=== PATIENT | female | born 1975 | race Caucasian/White ===

== ENCOUNTER 2023-05-13 12:14 | Day surgery (SDC) | payer MEDICAID ==
[~2023-05-13] VITALS: Ht 152.4 cm; Wt 83.9 kg
[2023-05-13] MEDS ORDERED: diphenhydrAMINE 50 MG/ML VIAL ONE (12:34)
[2023-05-13] MEDS ORDERED: fentaNYL citrate 0.05 MG/ML VIAL ONE (12:35)
[2023-05-13] MEDS ORDERED: MIDAZOLAM 2 MG/2 ML VIAL ONE (12:35)
[2023-05-13] MEDS ORDERED: MIDAZOLAM 2 MG/2 ML VIAL IVP ONE (13:45)
[2023-05-13] MEDS ORDERED: fentaNYL citrate 0.05 MG/ML VIAL IVP ONE (13:45)
== END 2023-05-13 14:06 | disposition home or self-care (01) ==
LOC: MDS 12:14 → MMU 12:31 → MDS 14:06
PROVIDERS: ATTEND Internal Medicine Gastroenterology
DX: R10.13 Epigastric pain (principal); K21.9 Gastro-esophageal reflux disease without esophagitis; K29.50 Unspecified chronic gastritis without bleeding; B96.81 Helicobacter pylori [H. pylori] as the cause of diseases classified elsewhere; M19.90 Unspecified osteoarthritis, unspecified site; M77.9 Enthesopathy, unspecified; F17.210 Nicotine dependence, cigarettes, uncomplicated; Z79.899 Other long term (current) drug therapy
CPT/HCPCS: 43239; J2250; J3010; J1200

== ENCOUNTER 2023-07-15 07:14 | Day surgery (SDC) | payer OTHER ==
[~2023-07-15] VITALS: Ht 152.4 cm; Wt 81.6 kg
[2023-07-15] MEDS ORDERED: diphenhydrAMINE 50 MG/ML VIAL ONE (08:01)
[2023-07-15] MEDS: fentaNYL citrate 0.05 MG/ML VIAL ONE (08:24)
[2023-07-15] MEDS: MIDAZOLAM 5 MG/5 ML VIAL ONE (08:24)
[2023-07-15] MEDS: LIDOCAINE 2% 100 MG/5 ML UJET TP ONE (08:25)
== END 2023-07-15 09:25 | disposition home or self-care (01) ==
LOC: MDS 07:14 → MMU 07:15 → MDS 09:25
PROVIDERS: ATTEND Internal Medicine Gastroenterology
DX: Z12.11 Encounter for screening for malignant neoplasm of colon (principal); K21.9 Gastro-esophageal reflux disease without esophagitis; E66.9 Obesity, unspecified; F17.210 Nicotine dependence, cigarettes, uncomplicated; B96.81 Helicobacter pylori [H. pylori] as the cause of diseases classified elsewhere; Z79.899 Other long term (current) drug therapy
CPT/HCPCS: 45378; J1200; J2250; J3010